=== PATIENT | female | born 1940 | race American Indian/Alaskan Native ===

== ENCOUNTER 2017-06-08 11:16 | Emergency (ER) | payer MEDICARE ==
[2017-06-08 12:17] VITALS: BP 143/85
--- NOTE | 2017-06-08 13:31 | XRay Report ---
CHEST TWO VIEWS: 06/08/17 11:16:00 CLINICAL: Chest pain. COMPARISON: None FINDINGS: Normal heart and pulmonary vasculature.Aortic tortuosity and calcification. The lungs are mildly hyperexpanded and hyperlucent. No airspace disease or pleural effusion.The bones and soft tissues are unremarkable. IMPRESSION: COPD. No CHF or pneumonia.
--- NOTE | 2017-06-08 13:57 | Emergency Department Report ---
HPI - General Chief Complaint: Upper Respiratory Infection Time Seen by Provider: 06/08/17 13:51 - HPI HPI: 76-year-old -[place] female comes in for complaint of right arm pain and headache 4 days. She denies any recent trauma she does admit that she watches a 2-year-old great grandson and has been taking the trash out since her has not been able to. She also states that she's had a cold and a cough for about 2-3 days. She denies any nausea no vomiting no fever she says she's has chills and she's been sitting here. Patient reports that she took a Tylenol this morning about 8 AM extended release and it has helped a little bit. Patient does admit that she is a smoker for 40 years. ED Past Medical Hx - Past Medical History Additional medical history: Bronchitis - Social History Smoking Status: Never Smoker Substance Use Type: None - Medications Home Medications: Home Medications Medication Instructions Recorded Confirmed Last Taken Type Acetaminophen/Codeine [Tylenol #3] 1 tab PO Q6H PRN #20 tab 04/24/15 Unknown Rx Clindamycin [Clindamycin CAP] 300 mg PO Q6H #40 capsule 04/24/15 Unknown Rx Benzonatate [Tessalon Perles] 100 mg PO Q8HR 5 Days #15 capsule 06/08/17 Unknown Rx Ibuprofen [Motrin 600 MG tab] 600 mg PO Q8H PRN #40 tablet 06/08/17 Unknown Rx ED Review of Systems ROS: Stated complaint: WEAKNESS, BODY PAIN Other details as noted in HPI Constitutional: chills Eyes: denies: eye pain, eye discharge, vision change ENT: denies: ear pain, throat pain Respiratory: cough Cardiovascular: denies: chest pain, palpitations Gastrointestinal: denies: abdominal pain, nausea, diarrhea Genitourinary: denies: urgency, dysuria, discharge Musculoskeletal: arthralgia (right arm) Neurological: headache Psychiatric: denies: anxiety, depression Hematological/Lymphatic: denies: easy bleeding, easy bruising Physical Exam - Physical Exam Vital Signs: Vital Signs 06/08/17 06/08/17 12:14 12:18 Temperature 98.6 F 98.6 F Pulse Rate 77 77 Respiratory 18 Rate Blood Pressure 143/85 Blood Pressure 143/85 [Right] O2 Sat by Pulse 98 98 Oximetry Physical Exam: GENERAL APPEARANCE: Well developed, well nourished, in no acute distress. SKIN: Inspection of the skin reveals no rashes, ulcerations or petechiae. HEENT: The sclerae were anicteric and conjunctivae were pink and moist. Extraocular movements were intact and pupils were equal, round, and reactive to light with normal accommodation. External inspection of the ears and nose showed no scars, lesions, or masses. Lips, teeth, and gums showed normal mucosa. The oral mucosa, hard and soft palate, tongue and posterior pharynx were normal. NECK: Supple and symmetric. There was no thyroid enlargement, and no tenderness , or masses were felt. CHEST: Normal AP diameter and normal contour without any kyphoscoliosis. LUNGS: Auscultation of the lungs revealed normal breath sounds without any other adventitious sounds or rubs. CARDIOVASCULAR: There was a regular rate and rhythm without any murmurs, gallops , rubs. The carotid pulses were normal and 2+ bilaterally without bruits. Peripheral pulses were 2+ and symmetric. LYMPH NODES: No lymphadenopathy was appreciated in the neck, axillae or groin. MUSCULOSKELETAL: Gait was normal. There was no tenderness or effusions noted. Muscle strength and tone were normal. EXTREMITIES: No cyanosis, clubbing or edema. Upper extremity full range of motion right shoulder crepitus strength normal and symmetrical. NEUROLOGIC: Alert and oriented x 3. Normal affect. Gait was normal. Normal deep tendon reflexes with no pathological reflexes. Sensation to touch was normal. ED Course Vital Signs 06/08/17 06/08/17 12:14 12:18 Temperature 98.6 F 98.6 F Pulse Rate 77 77 Respiratory 18 Rate Blood Pressure 143/85 Blood Pressure 143/85 [Right] O2 Sat by Pulse 98 98 Oximetry ED Medical Decision Making - Medical Decision Making Patient has been evaluated by this provider fast track. Chest x-ray was done that show COPD no CHF no pneumonia. We will give patient ibuprofen 600 mg to help with her pain. Discussed with patient she needs to stop smoking cigarettes. Discussed the patient that she needs to follow-up with a doctor for regular appointments. Discussed with patient that her lung exam was within normal limits did not hear any wheezing no rhonchi. Discussed with patient most likely her cough is a smoker's cough. Discussed the patient is very important for her to follow-up with the primary care provider. Patient verbalized understanding Critical care attestation.: If time is entered above; I have spent that time in minutes in the direct care of this critically ill patient, excluding procedure time. ED Disposition Clinical Impression: Right arm pain, Cough headache COPD (chronic obstructive pulmonary disease) Qualifiers: COPD type: chronic bronchitis Chronic bronchitis type: simple Qualified Code(s) : J41.0 - Simple chronic bronchitis Disposition: TO HOME OR SELFCARE Is pt being admited?: No Does the pt Need Aspirin: No Condition: Stable Instructions: Chronic Obstructive Pulmonary Disease (ED) Additional Instructions: Please follow up with the primary care provider I have listed one low. Take ibuprofen with food and drink plenty of water. The Tessalon Perles off for your cough. I encourage you to stop smoking. Prescriptions: Benzonatate [Tessalon Perles] 100 mg PO Q8HR 5 Days #15 capsule Ibuprofen [Motrin 600 MG tab] 600 mg PO Q8H PRN #40 tablet PRN Reason: Pain Referrals: BRIONNA BERNARDO MD [Primary Care Provider] - 3-5 Days [facility] [Provider Group] - 3-5 Days [facility] [Provider Group] - 3-5 Days
[2017-06-08] MEDS ORDERED: MOTRIN PO ONE (14:23)
== END 2017-06-08 14:43 | disposition home or self-care (01) ==
LOC: ED 11:16
DX: J41.0 Simple chronic bronchitis (principal); M79.601 Pain in right arm; R05 Cough
CPT/HCPCS: 71046

== ENCOUNTER 2019-03-16 14:32 | Emergency (ER) | payer MEDICARE ==
--- NOTE | 2019-03-16 15:09 | Emergency Department Report ---
Blank Doc - Documentation Documentation: 78-year-old female that presents with URI symptoms. This initial assessment/diagnostic orders/clinical plan/treatment(s) is/are subject to change based on patient's health status, clinical progression and re- assessment by fellow clinical providers in the ED. Further treatment and workup at subsequent clinical providers discretion. Patient/guardians urged not to elope from the ED as their condition may be serious if not clinically assessed and managed. Initial orders include: 1- Patient sent to [facility] for further evaluation and treatment 2- CXR
--- NOTE | 2019-03-16 16:06 | XRay Report ---
CHEST 2 VIEWS INDICATION: cough. COMPARISON: 06/08/2017 FINDINGS: Support devices: None. Heart: Within normal limits. Lungs/pleura: No acute air space or interstitial disease. No pneumothorax. Additional findings: None. IMPRESSION: No acute findings. Signer Name: Joel Cabello Jr, MD Signed: 03/16/2019 4:02 PM Workstation Name: [id number]
[2019-03-16] MEDS ORDERED: NORCO 5/325 PO STA (19:45)
--- NOTE | 2019-03-16 19:57 | Emergency Department Report ---
- General Chief Complaint: Upper Respiratory Infection Stated Complaint: HEAD COLD/PAIN Time Seen by Provider: 03/16/19 15:09 Source: police Mode of arrival: Ambulatory Limitations: No Limitations - History of Present Illness Initial Comments: 78-year-old -[place] female smoker with a history of untreated hypertension presents emergency department complaining of a two-week history of cough congestion with coryza and yellow mucus nausea or vomiting no hemoptysis no hematemesis no hematochezia. Reports no abdominal pain. MD Complaint: fever, cough, rhinorrhea, nasal congestion -: Gradual Severity: mild Quality: dull Consistency: constant Improves With: nothing Worsens With: nothing Associated Symptoms: chills, myalgias, rhinorrhea, nasal congestion, cough. denies: shortness of breath, abdominal pain, nausea, right sweats, weight loss, epistaxis, ear pain - Related Data Previous Rx's Medication Instructions Recorded Last Taken Type Acetaminophen/Codeine [Tylenol #3] 1 tab PO Q6H PRN #20 tab 04/24/15 Unknown Rx Clindamycin [Clindamycin CAP] 300 mg PO Q6H #40 capsule 04/24/15 Unknown Rx Benzonatate [Tessalon Perles] 100 mg PO Q8HR 5 Days #15 capsule 06/08/17 Unknown Rx Ibuprofen [Motrin 600 MG tab] 600 mg PO Q8H PRN #40 tablet 06/08/17 Unknown Rx ALBUTEROL Inhaler (OR & NICU) 1 puff IH Q4-6H PRN #1 inha 03/16/19 Unknown Rx [ProAir HFA Inhaler] Azithromycin [Zithromax TAB] 500 mg PO QDAY #3 tablet 03/16/19 Unknown Rx guaiFENesin/CODEINE [Robitussin AC] 5 ml PO Q6H PRN #120 ml 03/16/19 Unknown Rx Allergies Allergy/AdvReac Type Severity Reaction Status Date / Time No Known Allergies Allergy Verified 06/08/17 12:14 ED Review of Systems ROS: Stated complaint: HEAD COLD/PAIN Other details as noted in HPI Comment: All other systems reviewed and negative ED Past Medical Hx - Past Medical History Previous Medical History?: Yes Hx Hypertension: Yes Additional medical history: Bronchitis - Surgical History Past Surgical History?: No - Social History Smoking Status: Current Some Day Smoker Substance Use Type: None - Medications Home Medications: Home Medications Medication Instructions Recorded Confirmed Last Taken Type Acetaminophen/Codeine [Tylenol #3] 1 tab PO Q6H PRN #20 tab 04/24/15 Unknown Rx Clindamycin [Clindamycin CAP] 300 mg PO Q6H #40 capsule 04/24/15 Unknown Rx Benzonatate [Tessalon Perles] 100 mg PO Q8HR 5 Days #15 capsule 06/08/17 Unknown Rx Ibuprofen [Motrin 600 MG tab] 600 mg PO Q8H PRN #40 tablet 06/08/17 Unknown Rx ALBUTEROL Inhaler (OR & NICU) 1 puff IH Q4-6H PRN #1 inha 03/16/19 Unknown Rx [ProAir HFA Inhaler] Azithromycin [Zithromax TAB] 500 mg PO QDAY #3 tablet 03/16/19 Unknown Rx guaiFENesin/CODEINE [Robitussin AC] 5 ml PO Q6H PRN #120 ml 03/16/19 Unknown Rx ED Physical Exam - General Limitations: No Limitations General appearance: alert, in no apparent distress, other (very thin female in no acute distress) - Head Head exam: Present: atraumatic, normocephalic, other (no temporal tenderness with palpation) - Eye Eye exam: Present: normal appearance, PERRL, EOMI Pupils: Present: normal accommodation - ENT ENT exam: Present: normal exam, mucous membranes moist - Neck Neck exam: Present: normal inspection, full ROM - Respiratory Respiratory exam: Present: normal lung sounds bilaterally. Absent: respiratory distress, wheezes, rales, accessory muscle use, decreased breath sounds - Cardiovascular Cardiovascular Exam: Present: regular rate, normal rhythm. Absent: systolic murmur, diastolic murmur, rubs, gallop - GI/Abdominal GI/Abdominal exam: Present: soft, normal bowel sounds - Extremities Exam Extremities exam: Present: normal inspection - Back Exam Back exam: Present: normal inspection - Neurological Exam Neurological exam: Present: alert, oriented X3 - Psychiatric Psychiatric exam: Present: normal affect, normal mood - Skin Skin exam: Present: warm, dry, intact, normal color. Absent: rash ED Course Vital Signs 03/16/19 03/16/19 03/16/19 14:47 15:09 20:09 Temperature 98.9 F 98.5 F 97.7 F Pulse Rate 88 88 72 Respiratory 16 16 16 Rate Blood Pressure 145/81 Blood Pressure 145/81 169/93 [Right] O2 Sat by Pulse 100 100 97 Oximetry ED Medical Decision Making - Radiology Data Radiology results: report reviewed [facility] [address] [place] [address] XRay Report Signed Patient: KIKO WATERS MR#: [id number] : 1940 Acct:[id number] Age/Sex: 78 / F ADM Date: 03/16/19 Loc: ED Attending Dr: Ordering Physician: DI BAKER NP Date of Service: 03/16/19 Procedure(s): XR chest routine 2V Accession Number(s): [id number] cc: DI BAKER NP Fluoro Time In Minutes: CHEST 2 VIEWS INDICATION: cough. COMPARISON: 06/08/2017 FINDINGS: Support devices: None. Heart: Within normal limits. Lungs/pleura: No acute air space or interstitial disease. No pneumothorax. Additional findings: None. IMPRESSION: No acute findings. Signer Name: Joel Rain Jr, MD Signed: 03/16/2019 4:02 PM Workstation Name: [id number] Transcribed By: TTR Dictated By: JOEL RAIN JR, MD Electronically Authenticated By: JOEL RAIN JR, MD Signed Date/Time: 03/16/19 1602 Critical care attestation.: If time is entered above; I have spent that time in minutes in the direct care of this critically ill patient, excluding procedure time. ED Disposition Clinical Impression: Bronchitis, Cephalgia, Cough Disposition: DC-01 TO HOME OR SELFCARE Is pt being admited?: No Does the pt Need Aspirin: No Condition: Stable Instructions: Acute Bronchitis (ED), Chronic Bronchitis (ED), Acute Headache (ED), Cold Symptoms (ED), Acute Cough (ED) Prescriptions: ALBUTEROL Inhaler (OR & NICU) [ProAir HFA Inhaler] 1 puff IH Q4-6H PRN #1 inha PRN Reason: Cough guaiFENesin/CODEINE [Robitussin AC] 5 ml PO Q6H PRN #120 ml PRN Reason: Cough Azithromycin [Zithromax TAB] 500 mg PO QDAY #3 tablet Referrals: PRIMARY CAREMD [Primary Care Provider] - 3-5 Days [facility] [Provider Group] - 3-5 Days
[2019-03-16 20:09] VITALS: BP 169/93
== END 2019-03-16 20:33 | disposition home or self-care (01) ==
LOC: ED 14:32
DX: J40 Bronchitis, not specified as acute or chronic (principal); I10 Essential (primary) hypertension; F17.200 Nicotine dependence, unspecified, uncomplicated
CPT/HCPCS: 71046